=== PATIENT | female | born 1965 | race Caucasian/White ===

== ENCOUNTER 2023-08-08 16:00 | Outpatient (RCR) | payer OTHER, SELFPAY ==
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
--- NOTE | 2023-04-24 17:15 | PT.OPPOC ---
Physical, Occupational & Speech Therapy At [facility] Current Diagnoses Cervicalgia (04/24/23) Anesthesia of skin (04/24/23) Visit Care Team Role Provider Type Hermelinda Ramos PA-C Attending Provider Non-Staff Primary Care Provider Referring Provider Specialty: Internal Medicine Address: [address] [place] [address], [id number] Email: Plan Of Care PT-OP-T Assessment and Plan Start: 04/24/23 17:34 Freq: Status: Active Protocol: Document 04/24/23 16:35 DCW (Rec: 04/25/23 13:56 DCW [id number]) Physical Therapy Assessment Rehab Potential Rehabilitation Potential Good Evaluation Complexity Number of Personal Factors/Comorbidities 3 or More Number of Body Systems Impaired 4 or More Clinical Presentation at Evaluation Unstable Impairments Impairments Activity Tolerance,Functional Activities,Functional Mobility ,Pain,ROM,Sensation,Soft Tissue Mobility,Strength,Tone Goals Three Impairment Pt experiences constant left UE tingling Shipping And Receiving Assistant Goal (LTG) Pt to report numbness only 50% of the time in order to improve ability to sleep at night LTG Duration 06/24/23 Two Impairment Limited cervical range of motion Shipping And Receiving Assistant Goal (LTG) Pt to increase bilateral cervical lateral flexion to at least 40? in order to demonstrate improved flexibility and tone of bilateral upper traps LTG Duration 06/24/23 One Impairment Pt does not have an appropriate home exercise program Short Term Goal (STG) Pt to be independent and compliant with an appropriate HEP STG Duration 05/25/23 Assessment Summary Assessment Pt presents with signs and symptoms consistent with referring diagnosis of cervical nerve impingement causing radicular UE symptoms. Pt presents with fairly severe tone bilaterally in upper trap, scalenes, SCM, suboccipitals, and paraspinal musculature. Pt may benefit from skilled therapy focusing on STM, joint mobilizations, cervical traction, cervical strengthening, improving ROM, implementing an HEP, and flexibility. If pt does not progress as expected, pt may benefit from further advanced imaging. Does have an upcoming neurosurgery consultation, which may assist in PT POC going forward. Physical Therapy Plan Frequency and Duration Frequency of Treatment 2x/Week Plan of Care Start Date 04/24/23 Plan of Care End Date 06/24/23 Therapeutic Interventions Therapeutic Interventions Home Exercise Program,Joint Mobilizations,Manual Therapy, Neuromuscular Re-education, Patient/Caregiver Education, Self-Care/Home Management,Soft Tissue Mobilization, Therapeutic Activities, Therapeutic Exercises Modalities Cold Pack/Ice Massage,Hot Packs,Traction- Mechanical Next Visit Focus/Plan Next Note Type Treatment Note Next Visit Plan Manual traction, STM, stretching, cervical strengthening Plan of Care Dates Plan of Care Start Date 04/24/23 Plan of Care End Date 06/24/23 Electronically Signed by: Miguel Lee, PT 04/25/23 4733 If you are in agreement with this Plan of Care, please return a signed and dated copy. I have reviewed this Plan of Care and certify that the skilled therapy services above are required to meet the patient?s needs. Physician Signature Date Printed Name and Credentials Clinical Instructor Signature Printed Name and Credentials
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
--- NOTE | 2023-07-03 15:37 | PT.OPPOC ---
Physical, Occupational & Speech Therapy At [facility] Current Diagnoses Cervicalgia (07/03/23) Anesthesia of skin (07/03/23) Visit Care Team Role Provider Type Hermelinda Raoms PA-C Attending Provider Non-Staff Primary Care Provider Referring Provider Specialty: Internal Medicine Address: [address] [place] [address], [id number] Email: Plan Of Care PT-OP-T Assessment and Plan Start: 04/24/23 17:34 Freq: Status: Active Protocol: Document 07/03/23 14:05 DCW (Rec: 07/03/23 15:36 DCW [id number]) Physical Therapy Assessment Impairments Impairments Activity Tolerance,Functional Activities,Functional Mobility ,Pain,ROM,Sensation,Soft Tissue Mobility,Strength,Tone Goals Three Impairment Pt experiences constant left UE tingling Bill Recapitulation Clerk Goal (LTG) Pt to report numbness only 50% of the time in order to improve ability to sleep at night LTG Duration 08/08/23 Two Impairment Limited cervical range of motion Bill Recapitulation Clerk Goal (LTG) Pt to increase bilateral cervical lateral flexion to at least 40? in order to demonstrate improved flexibility and tone of bilateral upper traps LTG Duration 08/08/23 One Impairment Pt does not have an appropriate home exercise program Short Term Goal (STG) Pt to be independent and compliant with an appropriate HEP STG Duration Met Progress Towards Goals Progress Towards Goals Progressing Toward Goals Assessment Summary Assessment Pt showing good overall improvement, Cervical ROM and tone both significantly improved since initial evaluation. Does continue to experience fairly consistent numbness in UEs, especially at night. Has good understanding of HEP, has purchased a cervical traction unit and suboccipital pillow for home use. Will likely continue to benefit from ~1x/week visits for another 4-5 weeks to ensure improvement in overall cervical tone and mobility prior to discharge to independent [facility]. Physical Therapy Plan Frequency and Duration Frequency of Treatment 1x/Week Plan of Care Start Date 07/03/23 Plan of Care End Date 08/08/23 Therapeutic Interventions Therapeutic Interventions Home Exercise Program,Joint Mobilizations,Manual Therapy, Neuromuscular Re-education, Patient/Caregiver Education, Self-Care/Home Management,Soft Tissue Mobilization, Therapeutic Activities, Therapeutic Exercises Modalities Cold Pack/Ice Massage,Hot Packs,Traction- Mechanical Next Visit Focus/Plan Next Note Type Treatment Note Next Visit Plan Manual traction, STM, stretching, cervical strengthening Plan of Care Dates Plan of Care Start Date 07/03/23 Plan of Care End Date 08/08/23 Electronically Signed by: Miguel Lee, PT 07/03/23 2848 If you are in agreement with this Plan of Care, please return a signed and dated copy. I have reviewed this Plan of Care and certify that the skilled therapy services above are required to meet the patient?s needs. Physician Signature Date Printed Name and Credentials Clinical Instructor Signature Printed Name and Credentials
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
== END 2023-08-09 13:57 | disposition home or self-care (01) ==
LOC: PHYS 16:00
PROVIDERS: PCP Physician Assistant; Referring Provider Physician Assistant; Visit Provider Physician Assistant
DX: M54.2 Cervicalgia (principal); R20.0 Anesthesia of skin
CPT/HCPCS: 97012; 97110; 97140; 97163